=== PATIENT | female | born 1930 | race Caucasian/White ===

== ENCOUNTER 2017-04-18 07:23 | Inpatient (IN) ==
[2017-04-18] MEDS ORDERED: PANTOPRAZOLE 40 MG VIAL IV STA (08:03)
[2017-04-18] MEDS ORDERED: ONDANSETRON 4 MG/2 ML VIAL IV PRN (08:03)
[2017-04-18] MEDS ORDERED: SODIUM CHLORIDE 0.9% 500 ML IV STA (08:03)
[2017-04-18] MEDS ORDERED: PANTOPRAZOLE 40 MG VIAL IV ONE (08:07)
[2017-04-18 08:09] LABS: Basophils # 0.1 10*3/uL (0.0-0.2); Basophils % 0.9 % (0.0-0.8); Eosinophils # 0.5 10*3/uL (0.0-0.87); Eosinophils % 9.4 % (0.00-10.9); Hematocrit 36.4 VOL% (35.7-47.0); Immature Granulocytes % 0.4 %; Immature Granulocytes Absolute 0.02 #; Lymphocytes # 1.2 10*3/uL (1.4-4.0); Lymphocytes % 22.5 % (21.3-54.2); Mean Corpuscular Hemoglobin 30 PG (27-34); Mean Corpuscular Volume 91.9 FL (87-102); Mean Platelet Volume 10.2 FL (9.6-12.0); Monocytes # 0.5 10*3/uL (0.11-0.8); Monocytes % 9.2 % (1.7-12.7); Neutrophils # 3.1 10*3/uL (1.4-7.4); Neutrophils % 57.6 % (38.7-73.9); Platelet Count 164 T/CUMM (130-400); Red Blood Count 3.96 MC/CUMM (3.8-5.5); Red Cell Distribution Width 14.3 % (9.3-17.3); White Blood Count 5.3 T/CUMM (4-12)
--- NOTE | 2017-04-18 08:14 | EKG Report ---
Stationary ECG Study [facility] ER Test Date: 04/18/2017 8:12:16 AM Pat Name: THOM ALVARADO Department: Room: Gender: F Computational Scientist: : [id number] Requested by: Rick Patrick Order Number: [id number] Reading MD: JULIANNE GONSALEZ Intervals [place] Rate: 59 P: 18 ND: 218 QRS: -9 QRSD: 102 T: -15 QT: 467 QTc: 467 Interpretive Statements SINUS RHYTHM WITH PROLONGED ND INTERVAL VOLTAGE CRITERIA FOR LVH NONSPECIFIC T-WAVE ABNORMALITY Electronically Signed On 04-18-17 20:52:59 CDT by JULIANNE GONSALEZ [email or web address]
[2017-04-18 08:17] LABS: INR 1.3; PT Patient Result 13.5 SECS
[2017-04-18 08:21] LABS: Albumin 3.3 G/DL (3.4-5.0); Bilirubin,Total 0.7 MG/DL (0.2-1.0); Calcium 8.8 MG/DL (8.5-10.1); Osmolality,Calculated 296.7 MOS/KG (273-304); Potassium 3.6 MMOL/L (3.5-5.1); Total Protein 6.5 G/DL (6.4-8.3)
--- NOTE | 2017-04-18 08:24 | Emergency Department Note ---
IIdania Mantricia, am scribing for, and in the presence of, Rick Damon MD 08:09. IMarisol James D, MD, personally performed the services described in this documentation, ascribed by Luis Armando Emerson in my presence, and it is both accurate and complete 822 . Arrival - Arrival Chief Complaint: GI Bleed/Rectal ED Nursing Triage Note: states got up this am with small amount of blood on pad and then some clots and blood in toilet after going to the bathroom Mode of Arrival: Stretcher Limitations: No Limitations Source: Patient, RN Notes Reviewed Time Seen by Provider: 04/18/17 07:58 - History of Present Illness HPI Narrative: Pt is an 86 y/o white male arriving to ED by EMS with c/o a bright red bloody stool this morning. She states that it scared her because she's currently on Xarelto and there seemed to be blood clots in her BM. Pt has a PMHx of breast cancer and states that during her chemo, she bled on the inside; she is not on chemotherapy anymore. She also states that she had a similar episode back in 2014. Pt reports no other complaints to ED. Onset (ago): hour(s) Consistency: constant Allergies/Adverse Reactions: Allergies Allergy/AdvReac Type Severity Reaction Status Date / Time Iodinated Contrast Media - AdvReac Severe Difficulty Verified 12/24/16 12:03 Oral and Breathing Home Medications: Home Medications Medication Instructions Recorded Confirmed Type Allopurinol 100 mg PO DAILY 12/23/16 12/23/16 History Anastrozole 1 mg PO DAILY 12/23/16 12/23/16 History Ascorbic Acid [Vitamin C] 500 mg PO BID 12/23/16 12/23/16 History Chlorthalidone 25 mg PO DAILY 12/23/16 12/23/16 History Potassium Chloride [Klor-Con 10] 30 meq PO BID 12/23/16 12/23/16 History Rivaroxaban [Xarelto] 15 mg PO DAILY 12/23/16 12/23/16 History Sotalol [Betapace] 80 mg PO BID 12/23/16 12/23/16 History amLODIPine [Norvasc] 5 mg PO DAILY 12/23/16 12/23/16 History Chlorthalidone 25 mg PO DAILY 12/25/16 12/25/16 History Acetaminophen Tab [Tylenol Tab] 325 mg PO Q4H PRN #0 tablet 12/26/16 Rx Amoxicillin/Clav Tab [Augmentin 500 mg PO BID #6 tablet 12/26/16 Rx Tab] Atorvastatin [Lipitor] 20 mg PO QOTHER DAY #14 tablet 12/26/16 Rx Review of System - Review of System 12 point system: reviewed and no additional remarkable complaints except as stated - Review of System Constitutional: Present: other (bright red bloody stool). Absent: chills, diaphoresis Eyes: Absent: discharge, pain Head/Ears/Nose/Throat: Absent: earache, epistaxis Respiratory: Absent: cough, respiratory distress, wheezing Cardiovascular: Absent: chest pain, palpitations Gastrointestinal: Absent: abdominal pain, nausea, vomiting, diarrhea Genitourinary female: Present: other. Absent: abnormal menses, dysuria Musculoskeletal: Absent: arm pain, back pain, leg pain, neck pain Skin: Absent: rash, lesions Neurological: Absent: headache, weakness Medical,Surgical,& Family Hx - Medical History Cardio: History of: Cardiac Dysrhythmia, Hypertension, [place], Cardiovascular Problems (3 blood clots) HEENT: Comment Only: Eye Problem (cataract surgery) Endocrine: History of: Dyslipidemia No history of: Diabetes Mellitus (IDDM), Diabetes Mellitus (NIDDM), Thyroid Disorder Rheumatology: History of;: Gout Genitourinary: History of: Kidney Stones Gastrointestinal: History of: GERD Hematology: History of: Anemia Reproductive: History of: Breast Cancer - Surgical History Thoracic Surgeries: Surgical HX of;: Nephrectomy Abdominal Surgeries: Surgical HX of: Appendectomy Reproductive Surgeries: Surgical HX of;: Breast Surgery (finished Oct 2015) - Family History Family History: Reports;: Family Heart Disease, Family Hypertension - Social History Smoking Status: Never smoker Frequency of Alcohol Use: None Type of Drug Use: None Exam Vital Signs: Vital Signs Temperature 97.6 F 04/18/17 07:23 Pulse Rate 66 04/18/17 07:23 Respiratory Rate 18 04/18/17 07:23 Blood Pressure 175/75 04/18/17 07:23 O2 Sat by Pulse Oximetry 98 04/18/17 07:23 - General General appearance: alert, in no apparent distress - Head Head exam: Present: atraumatic, normocephalic, normal inspection - Eye Eye exam: Present: normal appearance, PERRL, EOMI - ENT ENT exam: Present: normal exam, normal oropharynx, mucous membranes moist, TM's normal bilaterally, normal external ear exam - Neck Neck exam: Present: normal inspection, full ROM, trachea midline. Absent: tenderness - Chest Chest inspection: Present: normal inspection, symmetric chest wall rise. Absent : tenderness - Respiratory Respiratory exam: Present: normal lung sounds bilaterally - Cardiovascular Cardiovascular exam: Present: regular rate, normal rhythm, normal heart sounds - Abdominal Exam Abdominal exam: Present: soft, normal bowel sounds. Absent: distention, tenderness, guarding, rebound - Rectal Exam Rectal exam: Present: normal inspection, normal rectal tone, bloody stool ( bright red). Absent: decreased rectal tone - Extremities Exam Extremities exam: Present: normal inspection, full ROM, normal capillary refill. Absent: tenderness, pedal edema - Back Exam Back exam: Present: normal inspection, full ROM. Absent: tenderness - Neurological Exam Neurological exam: Present: alert, oriented X3, CN II-XII intact, normal gait, reflexes normal - Psychiatric Psychiatric exam: Present: normal affect, normal mood - Skin Skin exam: Present: warm, dry, intact, normal color Course - Consultations Consultation #1: Discussed with hospitalist. Patient will be seen by them in the emergency department and admitted to their service. Time: 09:09 Results - Labs CBC & BMP: 04/18/17 07:39 04/18/17 07:39 Lab Results: I have reviewed the patients labs - EKG EKG results: interpreted by ERMD - Impressions EKG: Sinus bradycardia with first-degree AV block, rate 59, voltage for LVH, nonspecific ST-T wave changes. - Diagnostic Findings Procedure: Abdominal x-ray: image reviewed by me (Nonspecific gas pattern, no free air, gas in the rectum.), Chest x-ray: image reviewed by me (Mediport present with the tip in superior vena cava. Small right pleural effusion.) Disposition Clinical Impression: Lower GI bleed, Chronic anticoagulation, History of DVT (deep vein thrombosis) , History of breast cancer Case discussed with: patient Disposition: Still a Patient Condition: Stable
[2017-04-18 08:29] LABS: Partial Thromboplastin Time 73.9 SECS (0-40)
--- NOTE | 2017-04-18 09:15 | XRay Report ---
XR chest 1V Indication: Shortness of breath Comparison: Chest x-ray December 23, 2016 Technique: Portable AP chest was performed. Findings: The heart appears normal in size. Sclerotic calcification of the aortic knob is stable. Left-sided venous access to this is stable. Pulmonary vasculature demonstrates no specific abnormality. Hilar structures demonstrate fairly symmetric appearance. The lungs demonstrate coarsened interstitial pattern with little change suggested since comparison. A pain changes been improved aeration of the lung bases. Bones and soft tissues demonstrate no evidence of acute pathology. Impression: 1. Overall appearance of the chest has changed little since comparison study. There may be some interval improvement in aeration of the lung bases. Chronic interstitial coarsening is suggested bilaterally. 04/18/2017 9:05 AM PROCEDURE INTERPRETED AT [facility] DEPARTMENT OF RADIOLOGY Final Report Signed by: Dr. Neptali Morse
--- NOTE | 2017-04-18 09:16 | XRay Report ---
XR abdomen 2V Indication: Abdominal pain. Comparison: None. Technique: Flat and erect images of the abdomen were performed. Findings: Lung bases are clear. No organomegaly suggested. The bowel gas pattern demonstrates no significant abnormality. Bony structures as well as soft tissues demonstrate no evidence of significant pathology. Surgical absence of the gallbladder is suggested. Small hiatal hernia is not excluded. A rounded density lateral to the clips within the right upper quadrant is of uncertain etiology. Impression: 1. No active process is suggested within the abdomen or pelvis. 04/18/2017 9:12 AM PROCEDURE INTERPRETED AT [facility] DEPARTMENT OF RADIOLOGY Final Report Signed by: Dr. Neptali Morse
--- NOTE | 2017-04-18 10:05 | Hospitalist History & Physical ---
<Eleni Muroda - Last Filed: 04/18/17 09:56> Assessment and Plan (1) Chronic anticoagulation Status: Acute Assessment and plan: We will hold all anticoagulants at this time due to active bleeding. We will initiate mechanical DVT prophylaxis. we will continue to monitor. Current Visit: Yes (2) History of DVT (deep vein thrombosis) Status: Acute Assessment and plan: Although the patient has a very extensive history for the formation of DVTs, we will hold all anticoagulants at this time due to active bleeding. We will start mechanical prophylactics and apply SCDs. Current Visit: Yes (3) Lower GI bleed Status: Acute Assessment and plan: We will hold the patient n.p.o., gently replace volume, start PPIs, and consult GI for further evaluation. We will obtain serial H&H's, although her hemoglobin and hematocrit are stable at this time at 12.0 and 36.4, this may decline in response to the large loss of blowout experienced by her prior to presenting to the ED. We will transfuse if needed. Current Visit: Yes (4) Hypertension Status: Chronic Assessment and plan: We will monitor and resume home meds as previously ordered. Current Visit: No (5) Acute kidney injury Status: Acute Assessment and plan: Mild renal insufficiency noted at the time of admission, BUN noted at 34, creatinine at 1.20. This may be a response to a loss in volume secondary to the rectal bleeding. We we will gently rehydrate and recheck labs in the a.m. Current Visit: Yes History of Present Illness Chief complaint: Rectal bleeding History of present illness: This is a very pleasant 86-year-old female that presented to the ED at [facility] on this morning via EMS for evaluation of rectal bleeding. The patient has a very complex medical history significant for hypertension, deep vein thrombosis, myocardial infarction, congestive heart failure, dyslipidemia, gouty arthritis, renal calculi, anemia, carcinoma of the breast, and GERD. The patient has a surgical history significant for nephrectomy, appendectomy, mastectomy, and cataract removal. The patient reported the onset of symptoms on this morning upon awakening. She reports that she went to the bathroom and noticed that she had blood in her protective briefs. She proceeded to use the bathroom and noticed that she had dark red blood coming from her rectum. She became immediately alarmed and called EMS for further evaluation. The patient was assessed upon arrival to the ED. Labs were obtained which were significant for mild renal insufficiency with a BUN of 34 and creatinine of 1.20. Hemoglobin and hematocrit were noted at 12.0 and 36.4. Chest x-ray was obtained which reported chronic interstitial coarsening bilaterally. Abdominal x-ray was obtained which reported no active process within the abdomen or pelvis. 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 The patient reported that she was currently taking Xarelto prophylactically for this condition. In addition she reported an episode similar in nature in the past while she was on Coumadin, in which she was evaluated and treated by Dr. Barcenas. After brief discussion with both Dr. Dao and Dr. Lopez, the patient will be admitted to the hospitalist services for continuation of care. We will consult GI to assist during the clinical encounter. Home Medications Medication Instructions Recorded Confirmed Type Allopurinol 100 mg PO QAM 12/23/16 04/18/17 History Anastrozole 1 mg PO QAM 12/23/16 04/18/17 History Potassium Chloride [Klor-Con 10] 30 meq PO BID 12/23/16 04/18/17 History Rivaroxaban [Xarelto] 15 mg PO QPM 12/23/16 04/18/17 History Sotalol [Betapace] 80 mg PO BID 12/23/16 04/18/17 History amLODIPine [Norvasc] 5 mg PO QAM 12/23/16 04/18/17 History Chlorthalidone 25 mg PO QPM 12/25/16 04/18/17 History Acetaminophen Tab [Tylenol Tab] 325 mg PO Q4H PRN #0 tablet 12/26/16 04/18/17 Rx Torsemide [Torsemide] 20 mg PO QAM 04/18/17 04/18/17 History Allergies Allergy/AdvReac Type Severity Reaction Status Date / Time Iodinated Contrast Media - AdvReac Severe Difficulty Verified 12/24/16 12:03 Oral and Breathing Medical,Surgical,& Family Hx - Medical History Cardio: History of: Cardiac Dysrhythmia, Hypertension, [place], Cardiovascular Problems (3 blood clots) HEENT: Comment Only: Eye Problem (cataract surgery) Endocrine: History of: Dyslipidemia No history of: Diabetes Mellitus (IDDM), Diabetes Mellitus (NIDDM), Thyroid Disorder Rheumatology: History of;: Gout Genitourinary: History of: Kidney Stones Gastrointestinal: History of: GERD Hematology: History of: Anemia Reproductive: History of: Breast Cancer - Surgical History Thoracic Surgeries: Surgical HX of;: Nephrectomy Abdominal Surgeries: Surgical HX of: Appendectomy Reproductive Surgeries: Surgical HX of;: Breast Surgery (finished Oct 2015) - Family History Family History: Reports;: Family Heart Disease, Family Hypertension - Social History Smoking Status: Never smoker Frequency of Alcohol Use: None Type of Drug Use: None 12 point system: reviewed and no additional remarkable complaints except as stated Exam - Constitutional Vitals: Period Temp Pulse Resp BP Sys/Calixto Pulse Ox Last 24 Hr 97.6 F-97.6 F 58-66 18-18 164-175/62-75 98-100 General appearance: normal weight, no acute distress - Head Head exam: Present: normal inspection, normocephalic, atraumatic - Eye Eye exam: Present: EOMI. Absent: conjunctival injection, nystagmus Pupils: Present: CECILIA, normal accommodation - ENT ENT exam: Present: normal exam, normal external ear exam, normal oropharynx - Neck Neck exam: Present: normal inspection. Absent: lymphadenopathy, meningismus, thyromegaly - Respiratory Respiratory exam: Present: clear to auscultation bilaterally. Absent: rales, rhonchi, stridor, wheezes - Cardiovascular Cardiovascular exam: Present: regular rate and rhythm, other (medi port to left upper chest wall) - GI/Abdominal GI/Abdominal exam: Present: normal bowel sounds, soft. Absent: firm, guarding, mass, tenderness - Extremities Exam Extremities exam: Present: normal inspection, normal capillary refill, full ROM. Absent: edema - Back Exam Back exam: Present: normal inspection - Neurological Exam Neurological exam: Present: alert, oriented X3, CN II-XII intact - Psychiatric Psychiatric exam: Present: normal affect, normal mood - Skin Skin exam: Present: normal color, warm, dry Results - Labs CBC & BMP: 04/18/17 07:39 04/18/17 07:39 Lab Results: I have reviewed the past 24 hour labs <Steve Lopez - Last Filed: 04/18/17 16:39> History of Present Illness History of present illness: Patient seen and examined along with TASHA Muro, agree with history, assessment and plan as documented. 86 y/o WF on Xarelto presents with rectal bleeding. She reports a history of multiple DVTs in the past, previously on coumadin, now on xarelto after developing a new DVT soon after stopping coumadin. She does report a similar bleed a few years ago, with supratherapeutic inr. She reports being told that she had an ulcer at that time. On exam she has now abdominal tenderness. H/H are ok right now, will continue to monitor serially. GI consulted. Will hold her xarelto for now, but given her history sounds like she will need to have some form of anti- coagulation. Exam - Constitutional Vitals: Period Temp Pulse Resp BP Sys/Calixto Pulse Ox Last 24 Hr 97.6 F-98.0 F 58-66 16-18 139-175/62-89 96-100 Results - Labs CBC & BMP: 04/18/17 11:53 04/18/17 07:39
[2017-04-18] MEDS ORDERED: PANTOPRAZOLE INJ 200 MG in SODIUM CHLORIDE 0.9% 250 ML IV SCH (12:00)
--- NOTE | 2017-04-18 12:08 | Gastrointestinal Consult Note ---
Assessment and Plan (1) Lower GI bleed Status: Acute Assessment and plan: 04/18-sudden onset of lower GI bleeding with bright red blood mixed with clots with mild lower abdominal soreness. History of duodenal ulcer in 2013. Last colonoscopy 10 years ago. No reported history of diverticulosis. Hemoglobin stable at 12. To be transfused 2 units of packed red blood cells. Continue to monitor serial H&H. Obtain last colonoscopy report from [facility]. Plan an addendum to followed by Dr. Barcenas. Current Visit: Yes History of Present Illness Chief complaint: GI bleed History of present illness: Ms. Greene is a 86 year old female who was admitted to the hospital with onset of GI bleeding. Patient has a prior history of hypertension, DVT, NH, CHF, breast cancer, nephrectomy, appendectomy, and mastectomy. Patient's daughter is at bedside during visit. Pt states she was in her usual state of health until this morning when she got up to use the restroom she noted a large amount of bright red blood in her briefs. She states that she had the urge to have a bowel movement and shortly after this she had another episode of darker blood with clots mixed in. She denies any abdominal pain associated with this other than some mild lower abdominal soreness. She denies any nausea or vomiting. Pt states she has never had a GI bleed in the past other than from duodenal ulcers in 2013. She denies any recent weight loss, fever or chills. She has been on Coumadin in the past for history of DVT however this was changed to Xarelto in 2014 in which she had a recurrence of a DVT. She has remained on Xarelto since this time. This is currently being held. Patient unable to recall the exact timing of her last colonoscopy however states that it was approximately 10 years ago done at the endoscopic clinic. She was told at that time that she did not need to repeat his due to no findings of polyps. Her last EGD was done in [address] Barcenas with findings of esophageal stricture as well as duodenal ulcers. She denies any NSAID use. She denies any increasing GERD, or dysphagia. Denies any increase in belching or bloating. Hemoglobin is currently stable at 12. BUN/creatinine 28. INR is 1.3. She is noted to have 2 units of blood pending to transfuse. Home Medications Medication Instructions Recorded Confirmed Type Allopurinol 100 mg PO QAM 12/23/16 04/18/17 History Anastrozole 1 mg PO QAM 12/23/16 04/18/17 History Potassium Chloride [Klor-Con 10] 30 meq PO BID 12/23/16 04/18/17 History Rivaroxaban [Xarelto] 15 mg PO QPM 12/23/16 04/18/17 History Sotalol [Betapace] 80 mg PO BID 12/23/16 04/18/17 History amLODIPine [Norvasc] 5 mg PO QAM 12/23/16 04/18/17 History Chlorthalidone 25 mg PO QPM 12/25/16 04/18/17 History Acetaminophen Tab [Tylenol Tab] 325 mg PO Q4H PRN #0 tablet 12/26/16 04/18/17 Rx Torsemide [Torsemide] 20 mg PO QAM 04/18/17 04/18/17 History Allergies Allergy/AdvReac Type Severity Reaction Status Date / Time Iodinated Contrast Media - AdvReac Severe Difficulty Verified 12/24/16 12:03 Oral and Breathing Medical,Surgical,& Family Hx - Medical History Cardio: History of: Cardiac Dysrhythmia, Hypertension, [place], Cardiovascular Problems (3 blood clots) HEENT: Comment Only: Eye Problem (cataract surgery) Endocrine: History of: Dyslipidemia No history of: Diabetes Mellitus (IDDM), Diabetes Mellitus (NIDDM), Thyroid Disorder Rheumatology: History of;: Gout Genitourinary: History of: Kidney Stones Gastrointestinal: History of: GERD, Gastrointestinal Bleed Hematology: History of: Anemia Reproductive: History of: Breast Cancer - Surgical History Thoracic Surgeries: Surgical HX of;: Nephrectomy (2004) Neurologic Surgeries: Patient denies: Neurologic Surgery Abdominal Surgeries: Surgical HX of: Appendectomy (1948) Reproductive Surgeries: Surgical HX of;: Breast Surgery (finished Oct 2015) - Family History Family History: Reports;: Family Heart Disease, Family Hypertension - Social History Smoking Status: Never smoker Frequency of Alcohol Use: None Type of Drug Use: None 12 point system: reviewed and no additional remarkable complaints except as stated - Constitutional Constitutional: Present: as per HPI - EENT Eyes: Present: as per HPI Ears: Present: as per HPI Nose, mouth and throat: Present: as per HPI - Cardiovascular Cardiovascular: Present: as per HPI - Respiratory Respiratory: Present: as per HPI - Gastrointestinal Gastrointestinal: Present: as per HPI, hematochezia - Genitourinary Genitourinary: Present: as per HPI - Musculoskeletal Musculoskeletal: Present: as per HPI - Neurological Neurological: Present: as per HPI - Psychiatric Psychiatric: Present: as per HPI - Endocrine Endocrine: Present: as per HPI - Hematologic/Lymphatic Hematologic/Lymphatic: Present: as per HPI Exam - Constitutional Vitals: Period Temp Pulse Resp BP Sys/Calixto Pulse Ox Last 24 Hr 97.6 F-98.0 F 58-66 16-18 139-175/62-89 96-100 General appearance: normal weight, no acute distress - Head Head exam: Present: normal inspection, normocephalic - Eye Eye exam: Present: other (Lids and conjunctive are unremarkable). Absent: scleral icterus - ENT ENT exam: Present: normal exam, normal oropharynx - Neck Neck exam: Present: normal inspection - Respiratory Respiratory exam: Present: clear to auscultation bilaterally. Absent: rales, rhonchi, wheezes - Cardiovascular Cardiovascular exam: Present: regular rate and rhythm. Absent: diastolic murmur , JVD, systolic murmur - GI/Abdominal GI/Abdominal exam: Present: normal bowel sounds, soft. Absent: ascites, distended, mass, organomegaly, tenderness - Extremities Exam Extremities exam: Present: normal inspection, full ROM - Back Exam Back exam: Present: normal inspection - Neurological Exam Neurological exam: Present: alert, oriented X3 - Psychiatric Psychiatric exam: Present: normal affect, normal mood - Skin Skin exam: Present: normal color, warm, dry Results - Labs CBC & BMP: 04/18/17 07:39 04/18/17 07:39 Lab Results: I have reviewed the past 24 hour labs
[2017-04-18 12:10] LABS: Hematocrit 35.6 VOL% (35.7-47.0); Hemoglobin 11.7 GM/DL (12.0-16.0)
[2017-04-18] MEDS: SODIUM CHLORIDE 0.9% 1,000 ML IV SCH (15:11)
[2017-04-18 19:24] LABS: Hematocrit 33.5 VOL% (35.7-47.0); Hemoglobin 11.1 GM/DL (12.0-16.0)
[2017-04-18] MEDS: SOTALOL 80 MG TABLET PO SCH (21:48)
[2017-04-19 01:31] LABS: Basophils % 0.4 % (0.0-0.8); Eosinophils # 0.4 10*3/uL (0.0-0.87); Eosinophils % 7.3 % (0.00-10.9); Hemoglobin 10.4 GM/DL (12.0-16.0); Immature Granulocytes % 0.4 %; Immature Granulocytes Absolute 0.02 #; Lymphocytes # 1.4 10*3/uL (1.4-4.0); Lymphocytes % 28.8 % (21.3-54.2); Mean Corpuscular HGB Conc 32.5 GM/DL (32-36); Mean Corpuscular Hemoglobin 30 PG (27-34); Mean Platelet Volume 9.7 FL (9.6-12.0); Monocytes # 0.5 10*3/uL (0.11-0.8); Monocytes % 9.2 % (1.7-12.7); Neutrophils # 2.6 10*3/uL (1.4-7.4); Neutrophils % 53.9 % (38.7-73.9); Platelet Count 144 T/CUMM (130-400); Red Blood Count 3.48 MC/CUMM (3.8-5.5); Red Cell Distribution Width 14.4 % (9.3-17.3); White Blood Count 4.9 T/CUMM (4-12)
[2017-04-19 01:53] LABS: Calcium 7.8 MG/DL (8.5-10.1); Osmolality,Calculated 288.8 MOS/KG (273-304); Potassium 3.4 MMOL/L (3.5-5.1)
[2017-04-19] MEDS: SODIUM CHLORIDE 0.9% 1,000 ML IV SCH ×3 (06:19→20:04)
[2017-04-19] MEDS: ANASTROZOLE 1 MG TABLET PO SCH (09:27)
[2017-04-19] MEDS: SOTALOL 80 MG TABLET PO SCH ×2 (09:27→21:30)
[2017-04-19] MEDS: ALLOPURINOL 100 MG TABLET PO SCH (09:27)
--- NOTE | 2017-04-19 09:34 | Gastrointestinal Progress Note ---
Assessment and Plan (1) Lower GI bleed Status: Acute Assessment and plan: 04/19-Hgb stable at 10.4, no further bleeding. Will plan for colonoscopy tomorrow. Plan and addendum to follow by Dr Barcenas. 04/18-sudden onset of lower GI bleeding with bright red blood mixed with clots with mild lower abdominal soreness. History of duodenal ulcer in 2013. Last colonoscopy 10 years ago. No reported history of diverticulosis. Hemoglobin stable at 12. To be transfused 2 units of packed red blood cells. Continue to monitor serial H&H. Obtain last colonoscopy report from [facility]. Plan an addendum to followed by Dr. Barcenas. Current Visit: Yes Gastroenterology - PN: Subj Interval history: CC: GI bleed Pt is seen awake and alert, states she did not rest last night due to required night checks by nursing staff. She states she has had no further bleeding however has not had a bowel movements. Denies any abdominal pain. She is tolerating clear liquids well. Hgb is stable at 10.4 however she had two units of PRBC ordered but not noted to be transfused. Abdomen is soft, nontender. We will start her prep for colonoscopy this morning. ROS: Denies SOB or chest pain Exam (Progress Note) - Constitutional Vitals: Period Temp Pulse Resp BP Sys/Calixto Pulse Ox Last 24 Hr 97.6 F-98.6 F 60-85 16-20 120-166/58-89 92-98 General appearance: normal weight, no acute distress - Head Head exam: Present: normal inspection, normocephalic - Eye Eye exam: Present: other (lids and conjunctiva unremarakble). Absent: scleral icterus - ENT ENT exam: Present: normal exam, normal oropharynx - Neck Neck exam: Present: normal inspection - Respiratory Respiratory exam: Present: clear to auscultation bilaterally. Absent: rales, rhonchi, wheezes - Cardiovascular Cardiovascular exam: Present: regular rate and rhythm. Absent: diastolic murmur , JVD, systolic murmur - GI/Abdominal GI/Abdominal exam: Present: normal bowel sounds, soft. Absent: ascites, distended, mass, organomegaly, tenderness - Extremities Exam Extremities exam: Present: normal inspection, full ROM - Back Exam Back exam: Present: normal inspection - Neurological Exam Neurological exam: Present: alert, oriented X3 - Psychiatric Psychiatric exam: Present: normal affect, normal mood - Skin Skin exam: Present: normal color, warm, dry Results - Labs CBC & BMP: 04/19/17 01:13 04/19/17 01:13 Lab Results: I have reviewed the past 24 hour labs
[2017-04-19] MEDS ORDERED: BISACODYL 5 MG TABLET PO ONE (10:00)
--- NOTE | 2017-04-19 10:35 | Hospitalist Progress Note ---
Assessment and Plan (1) History of DVT (deep vein thrombosis) Status: Chronic Assessment and plan: Multiple dvts in the past Currently on xarelto Current Visit: No (2) Hypertension Status: Chronic Assessment and plan: Continue sotalol Restart torsemide Current Visit: No (3) History of breast cancer Status: Chronic Current Visit: No (4) Lower GI bleed Status: Acute Assessment and plan: GI consulted H/H stable Plan is for colonoscopy tomorrow Current Visit: Yes (5) Chronic anticoagulation Status: Acute Current Visit: Yes Hospitalist: Subjective Interval history: No acute events overnight. No repeat episodes of bleeding, but no bowel movements either. Exam - Constitutional Vitals: Period Temp Pulse Resp BP Sys/Calixto Pulse Ox Last 24 Hr 97.6 F-98.6 F 60-85 16-20 120-166/58-78 92-98 General appearance: over weight - Head Head exam: Present: normocephalic, atraumatic - Eye Eye exam: Present: EOMI Pupils: Present: CECILIA - ENT ENT exam: Present: normal exam - Neck Neck exam: Present: normal inspection - Respiratory Respiratory exam: Present: clear to auscultation bilaterally. Absent: rhonchi, wheezes - Cardiovascular Cardiovascular exam: Present: regular rate and rhythm - GI/Abdominal GI/Abdominal exam: Present: normal bowel sounds, soft. Absent: tenderness, rebound - Extremities Exam Extremities exam: Present: normal inspection - Back Exam Back exam: Present: normal inspection - Neurological Exam Neurological exam: Present: alert, oriented X3 - Psychiatric Psychiatric exam: Present: normal affect, normal mood - Skin Skin exam: Present: warm, intact Results - Labs CBC & BMP: 04/19/17 01:13 04/19/17 01:13
[2017-04-19] MEDS ORDERED: POLYETHYLENE GLYCOL POWDER 255 GM BOTTLE PO ONE (11:00)
[2017-04-19] MEDS: TORSEMIDE 20 MG TABLET PO SCH (12:57)
[2017-04-20 05:27] LABS: Basophils % 0.6 % (0.0-0.8); Eosinophils # 0.5 10*3/uL (0.0-0.87); Eosinophils % 8.5 % (0.00-10.9); Hematocrit 33.3 VOL% (35.7-47.0); Hemoglobin 11.2 GM/DL (12.0-16.0); Immature Granulocytes % 0.2 %; Immature Granulocytes Absolute 0.01 #; Lymphocytes # 1.3 10*3/uL (1.4-4.0); Lymphocytes % 24.9 % (21.3-54.2); Mean Corpuscular HGB Conc 33.6 GM/DL (32-36); Mean Corpuscular Hemoglobin 31 PG (27-34); Mean Corpuscular Volume 91.2 FL (87-102); Mean Platelet Volume 10.2 FL (9.6-12.0); Monocytes # 0.5 10*3/uL (0.11-0.8); Monocytes % 9.2 % (1.7-12.7); Neutrophils % 56.6 % (38.7-73.9); Platelet Count 162 T/CUMM (130-400); Red Blood Count 3.65 MC/CUMM (3.8-5.5); Red Cell Distribution Width 14.2 % (9.3-17.3); White Blood Count 5.3 T/CUMM (4-12)
[2017-04-20 06:00] LABS: Calcium 7.8 MG/DL (8.5-10.1); Osmolality,Calculated 283.8 MOS/KG (273-304); Potassium 3.3 MMOL/L (3.5-5.1)
[2017-04-20] MEDS ORDERED: MAGNESIUM CITRATE 300 ML BOTTLE PO ONE (06:00)
[2017-04-20] MEDS: SODIUM CHLORIDE 0.9% 1,000 ML IV SCH ×3 (06:20→20:38)
[2017-04-20] MEDS ORDERED: PROPOFOL 200 MG/20 ML VIAL IV ONE (10:05)
[2017-04-20] MEDS ORDERED: LIDOCAINE 1% 5 ML VIAL ONE (10:05)
--- NOTE | 2017-04-20 10:10 | History and Physical Update ---
History and Physical Update - History and Physical H&P was reviewed, the patient examined and there: are no changes in the patients condition since last H&P was completed. - Physical Exam Mental Status: alert and oriented Heart: regular rate and rhythm Lung: clear to auscultation Abdomen: within normal limits Vitals: within normal limits
--- NOTE | 2017-04-20 10:23 | Operative Note ---
Date of procedure: 04/20/17 Pre-op diagnosis: Lower GI bleed Procedure: Procedure note: Colonoscopy Physician: Dr. Jacob Barcenas Brief clinical abstract: Patient is an 86-year-old female admitted with lower GI bleeding. She was on Xarelto prior to admission. She has had no further bleeding the last couple of days. Endoscopic findings: After informed consent was obtained, the patient was placed in the left lateral decubitus position. Digital rectal exam was performed with no palpable abnormalities felt. Pediatric videocolonoscope was inserted into the rectum and advanced to the cecum without difficulty. Retroflex view within the cecum was performed back to the level of the hepatic flexure. The endoscope was advanced back to the cecum and on withdrawal colonic mucosa was carefully examined. Bowel prep was of good quality. Withdrawal time was over 6 minutes duration. Vascular pattern throughout the colon appeared normal. No polyps were seen. There were a moderate number of diverticuli in the ascending as well as descending and sigmoid colon. No bleeding stigmata were visualized. No blood was noted in the colon. The endoscope was withdrawn in the rectum with retroflex view showing small internal hemorrhoids. The endoscope was then removed. She appeared to tolerate the procedure well. Impression: #1 diverticulosis coli #2 small internal hemorrhoids Plan: Advance diet. Could probably discharge tomorrow if no sign of further bleeding. Would hold Xarelto at least until probably Sunday of next week. Anesthesia: MAC Surgeon / Physician: Hugo Barcenas Estimated blood loss: none Specimens: none sent Condition: stable Disposition: post procedure unit Results - Labs CBC & BMP: 04/20/17 04:57 04/20/17 04:57 Discharge Plan - Discharge Medications No Action Potassium Chloride [Klor-Con 10] 30 meq PO BID Allopurinol 100 mg PO QAM Rivaroxaban [Xarelto] 15 mg PO QPM amLODIPine [Norvasc] 5 mg PO QAM Sotalol [Betapace] 80 mg PO BID Torsemide [Torsemide] 20 mg PO QAM Anastrozole 1 mg PO QAM Chlorthalidone 25 mg PO QPM Acetaminophen Tab [Tylenol Tab] 325 mg PO Q4H PRN #0 tablet PRN Reason: fever, headache/body aches - Follow Up or Referral - Forms/Instructions
--- NOTE | 2017-04-20 10:27 | Anesthesia Post-Op ---
Anesthesia Post OP - Post Ansesthetic Evaluation Patient seen in post op: Yes Resp: within normal limits CV: within normal limits Mental: within normal limits Temp: within normal limits [id number]: within normal limits Nausea and Vomiting: within normal limits Pain: within normal limits
--- NOTE | 2017-04-20 12:04 | Hospitalist Progress Note ---
Assessment and Plan (1) History of DVT (deep vein thrombosis) Status: Chronic Assessment and plan: Multiple dvts in the past Currently on xarelto, holding GI recommends restarting next week Current Visit: No (2) Hypertension Status: Chronic Assessment and plan: Continue sotalol and torsemide Current Visit: No (3) History of breast cancer Status: Chronic Current Visit: No (4) Lower GI bleed Status: Acute Assessment and plan: GI consulted H/H stable Colonoscopy today Current Visit: Yes (5) Chronic anticoagulation Status: Acute Current Visit: Yes Hospitalist: Subjective Interval history: No acute events overnight. No complaints this am. H/H is stable. Colonoscopy today with diverticulosis and small internal hemorrhoids. Possible discharge tomorrow if H/H remains stable. Can restart xarelto next week. Exam - Constitutional Vitals: Period Temp Pulse Resp BP Sys/Calixto Pulse Ox Last 24 Hr 97.1 F-99.0 F 55-65 16-20 109-169/51-75 92-99 General appearance: over weight - Head Head exam: Present: normocephalic, atraumatic - Eye Eye exam: Present: EOMI Pupils: Present: CECILIA - ENT ENT exam: Present: normal exam - Neck Neck exam: Present: normal inspection - Respiratory Respiratory exam: Present: clear to auscultation bilaterally. Absent: wheezes - Cardiovascular Cardiovascular exam: Present: regular rate and rhythm - GI/Abdominal GI/Abdominal exam: Present: normal bowel sounds, soft. Absent: tenderness, rebound - Back Exam Back exam: Present: normal inspection - Neurological Exam Neurological exam: Present: alert, oriented X3 - Psychiatric Psychiatric exam: Present: normal affect, normal mood - Skin Skin exam: Present: warm, intact Results - Labs CBC & BMP: 04/20/17 04:57 04/20/17 04:57
[2017-04-20] MEDS: SOTALOL 80 MG TABLET PO SCH ×2 (12:46→20:36)
[2017-04-20] MEDS: TORSEMIDE 20 MG TABLET PO SCH (12:46)
[2017-04-20] MEDS: ALLOPURINOL 100 MG TABLET PO SCH (12:47)
[2017-04-20] MEDS: ANASTROZOLE 1 MG TABLET PO SCH (12:47)
[2017-04-20] MEDS: POTASSIUM CHLORIDE 10 MEQ TABLET PO SCH ×2 (12:47→20:36)
[2017-04-21 05:39] LABS: Hemoglobin 10.5 GM/DL (12.0-16.0)
[2017-04-21] MEDS: ANASTROZOLE 1 MG TABLET PO SCH (09:10)
[2017-04-21] MEDS: SOTALOL 80 MG TABLET PO SCH (09:11)
[2017-04-21] MEDS: TORSEMIDE 20 MG TABLET PO SCH (09:11)
[2017-04-21] MEDS: POTASSIUM CHLORIDE 10 MEQ TABLET PO SCH ×2 (09:12→09:56)
[2017-04-21] MEDS: ALLOPURINOL 100 MG TABLET PO SCH (09:12)
--- NOTE | 2017-04-21 09:24 | Discharge Summary ---
<Edgardo Loya - Last Filed: 04/21/17 09:17> Hospital Course - Hospital Course Hospital Course: This patient is a 86-year-old female who was admitted to the [place] ED on 04/18 with complaints of bleeding per rectum. Abdominal CT on admission showed no active process within the abdomen or pelvis. Chest x-ray showed chronic interstitial coarsening bilaterally. She was admitted with a lower GI bleed and made n.p.o., anticoagulants were held, she was started on Protonix infusion , serial H&H's were ordered and GI was consulted. She was seen by Dr. Barcenas who planned for a colonoscopy on Sunday. On 04/20/2017, patient underwent a colonoscopy per Dr. Barcenas which revealed diverticulosis coli and small internal hemorrhoids. Procedure was otherwise unremarkable. GI recommended advancing her diet post op and restarting Xarelto on next week (Sunday, 2016). The remainder of her hospital course was uncomplicated highlighted by management of her chronic conditions including hypertension with sotalol and restarting torsemide. At this time she is reached maximum benefit from hospitalization and is stable for discharge. She will be discharged home to self with appropriate follow-up instructions. - Time spent with patient Time with patient DS: Greater than 30 minutes Discharge Plan - Discharge Data Disposition: Disch To Home/Self Care - Discharge Medications New Allopurinol [Zyloprim] 100 mg PO QAM tablet Anastrozole [Arimidex] 1 mg PO QAM tablet Continue Potassium Chloride [Klor-Con 10] 30 meq PO BID amLODIPine [Norvasc] 5 mg PO QAM Sotalol [Betapace] 80 mg PO BID Torsemide 20 mg PO QAM Chlorthalidone 25 mg PO QPM Acetaminophen Tab [Tylenol Tab] 325 mg PO Q4H PRN #0 tablet PRN Reason: fever, headache/body aches Discontinued Allopurinol 100 mg PO QAM Rivaroxaban [Xarelto] 15 mg PO QPM Anastrozole 1 mg PO QAM - Follow Up or Referral - Forms/Instructions Instructions: Gastrointestinal Bleeding (DC) Exam - Constitutional Vitals: Period Temp Pulse Resp BP Sys/Calixto Pulse Ox Last 24 Hr 96 F-98.3 F 56-87 16-21 104-190/51-81 93-98 Discharge Results Procedures and tests throughout hospitalization: Pending Orders 04/18/17 07:39 Antibody Identification Stat Red Blood Cells Leuko Red Stat Type and Screen Stat Labs on day of discharge: Labs from last 24 hours 04/21/17 04/18/17 04:27 07:39 Hgb 10.5 L Hct 32.0 L Crossmatch See Detail DS: Provider Date of admission: 04/18/17 09:13 Primary care physician: . No PCP Attending physician on admission: Steve Lopez MD Consults: 04/18/17 09:16 Consult to Physician [CONS] Routine Comment: Consulting Provider: Hugo Barcenas Consulting Provider Notified: Yes When should Consulting Provider be notified: Now Consult to Specialist Group: Gastroenterology When should Consulting Provider be notified: Now Person Notified: DG Date Notified: 04/18/17 Time Notified: 14:12 Discharging clinician: Edgardo VÁZQUEZ Expected date of discharge: 04/21/17 <Steve Lopez - Last Filed: 04/21/17 10:16> Hospital Course - Time spent with patient Time with patient DS: Less than 30 minutes Diagnosis - Discharge Diagnosis (1) History of DVT (deep vein thrombosis) Status: Chronic (2) Hypertension Status: Chronic (3) History of breast cancer Status: Chronic (4) Lower GI bleed Status: Resolved (5) Chronic anticoagulation Status: Chronic Discharge Plan - Discharge Data Condition at Discharge: Stable Discharge Diet: high fiber diet Activity: increase activity as tolerated Hygiene: no restrictions Weight Bearing at Discharge: weight bear as tolerated Contact your physician if you experience:: Shortness of breath, Bleeding Exam - Constitutional General appearance: normal weight - Head Head exam: Present: normocephalic, atraumatic - Eye Eye exam: Present: EOMI Pupils: Present: CECILIA - ENT ENT exam: Present: normal exam - Neck Neck exam: Present: normal inspection - Respiratory Respiratory exam: Present: clear to auscultation bilaterally. Absent: wheezes - Cardiovascular Cardiovascular exam: Present: regular rate and rhythm - GI/Abdominal GI/Abdominal exam: Present: normal bowel sounds, soft. Absent: tenderness, rebound - Extremities Exam Extremities exam: Present: normal inspection - Back Exam Back exam: Present: normal inspection - Neurological Exam Neurological exam: Present: alert, oriented X3 - Psychiatric Psychiatric exam: Present: normal affect, normal mood - Skin Skin exam: Present: warm, intact
[2017-04-21 11:52] VITALS: BP 176/75
--- NOTE | 2017-04-26 12:51 | Physician Query Form ---
CLICK EDIT DOCUMENT TO SELECT QUERY ANSWER --> OK --> SIGN Malu Mckeon RN Clinical Drawing Kiln Supervisor W) [phone] (f) [phone] [email or web address] PROVIDERS: Make your selection(s) from the choices in EACH section by typing an "x" and enter comments in the comment section. Please use your independent medical judgment in providing your response. This request does not imply that any particular answer is desired or expected. CLINICAL INDICATORS: (Providers should not edit this section) Pt. admitted with lower GI bleed. Based on documentation of "She's currently on Xarelto. We will hold all anticoagulants at this time due to active bleeding". C -Scope report showed "diverticulosis coli and small internal hemorrhoids". Based on the above, could you clarify the appropriate diagnosis, if significant , that supports the above abnormalities and additional evaluation, monitoring, and/or treatment rendered: ( ) GI bleed due to anticoagulants ( x) GI bleed due to diverticulosis ( ) GI bleed due to small internal hemorrhoids ( ) GI bleed due to ( ) Other, please specify: ( ) Clinically unable to determine COMMENTS: PLEASE ALSO DOCUMENT RESPONSE IN PROGRESS NOTES AND/OR DISCHARGE SUMMARY Use of terms such as suspected, likely, or probable (associated with a specific diagnosis that is being evaluated, monitored, or treated as if it exists) are acceptable and can be restated in the discharge summary if not ruled out. MTDD
== END 2017-04-21 11:55 | disposition home or self-care (01) | DRG 378 ==
LOC: EDBD → EDUNIT# → N.ED 07:23 → N.EDINP 09:13 → N.4E 10:53
PROVIDERS: ADMIT Internal Medicine; ATTEND Internal Medicine

== ENCOUNTER 2018-04-28 04:21 | Inpatient (IN) ==
[2018-04-28] MEDS ORDERED: FUROSEMIDE 40 MG/4 ML VIAL IV STA (04:36)
[2018-04-28 05:08] LABS: Basophils # 0.1 10*3/uL (0.0-0.2); Basophils % 0.5 % (0.0-0.8); Eosinophils # 0.2 10*3/uL (0.0-0.87); Eosinophils % 1.9 % (0.00-10.9); Hemoglobin 11.8 GM/DL (12.0-16.0); Immature Granulocytes % 0.3 %; Immature Granulocytes Absolute 0.03 #; Lymphocytes # 0.4 10*3/uL (1.4-4.0); Lymphocytes % 4.3 % (21.3-54.2); Mean Corpuscular HGB Conc 32.8 GM/DL (32-36); Mean Corpuscular Hemoglobin 29 PG (27-34); Mean Corpuscular Volume 89.1 FL (87-102); Mean Platelet Volume 9.3 FL (9.6-12.0); Monocytes # 0.3 10*3/uL (0.11-0.8); Monocytes % 2.6 % (1.7-12.7); Neutrophils % 90.4 % (38.7-73.9); Platelet Count 166 T/CUMM (130-400); Red Blood Count 4.04 MC/CUMM (3.8-5.5); Red Cell Distribution Width 15.1 % (9.3-17.3); White Blood Count 9.9 T/CUMM (4-12)
[2018-04-28 05:37] LABS: Albumin 3.2 G/DL (3.4-5.0); Bilirubin,Total 0.8 MG/DL (0.2-1.0); Calcium 8.7 MG/DL (8.5-10.1); Potassium 3.5 MMOL/L (3.5-5.1); Total Protein 6.5 G/DL (6.4-8.3)
[2018-04-28 05:54] LABS: Eosinophils 1 % (0-10); Hypochromasia 1+; Lymphocytes 4 % (20-55); Ovalocytes Slight; Platelet Estimate Normal; Segmented Neutrophils 93 % (50-85); Total Cells Counted 100
[2018-04-28] MEDS ORDERED: MAGNESIUM SULF RIDER 2 GM in PREMIX 1 EACH IV PRN (08:48)
[2018-04-28] MEDS ORDERED: MAGNESIUM SULF RIDER 4 GM in PREMIX 1 EACH IV PRN (08:48)
[2018-04-28 08:50] LABS: VBG Base Excess 3.4 MEQ/L (0-4); VBG HCO3 26.8 MEQ/L (24-28); VBG Oxygen Saturation 66.7 %; VBG PCO2 46.3 MMHG (41-51); VBG PH 7.403; VBG PO2 34.7 MMHG (17-40)
[2018-04-28] MEDS: POTASSIUM CHLORIDE 10 MEQ TABLET PO SCH ×2 (10:04→20:12)
[2018-04-28] MEDS: ALLOPURINOL 100 MG TABLET PO SCH (10:06)
[2018-04-28] MEDS: ANASTROZOLE 1 MG TABLET PO SCH (10:06)
[2018-04-28] MEDS: ATORVASTATIN 20 MG TABLET PO SCH (10:06)
[2018-04-28] MEDS: amLODIPine 5 MG TABLET PO SCH (10:07)
[2018-04-28] MEDS: SOTALOL 80 MG TABLET PO SCH ×2 (10:07→20:12)
[2018-04-28] MEDS: SPIRONOLACTONE 25 MG TABLET PO SCH (13:15)
[2018-04-28] MEDS: FUROSEMIDE 40 MG/4 ML VIAL IV SCH (15:13)
[2018-04-28] MEDS: ASCORBIC ACID 500 MG TABLET PO SCH ×2 (15:14→20:12)
[2018-04-28] MEDS ORDERED: ACETAMINOPHEN 325 MG TABLET PO PRN (17:26)
[2018-04-29 05:53] LABS: Basophils % 0.3 % (0.0-0.8); Eosinophils # 0.1 10*3/uL (0.0-0.87); Eosinophils % 1.8 % (0.00-10.9); Hematocrit 33.9 VOL% (35.7-47.0); Hemoglobin 11.3 GM/DL (12.0-16.0); Immature Granulocytes % 0.5 %; Immature Granulocytes Absolute 0.03 #; Lymphocytes # 0.8 10*3/uL (1.4-4.0); Lymphocytes % 11.6 % (21.3-54.2); Mean Corpuscular HGB Conc 33.3 GM/DL (32-36); Mean Corpuscular Hemoglobin 29 PG (27-34); Mean Corpuscular Volume 87.4 FL (87-102); Mean Platelet Volume 9.9 FL (9.6-12.0); Monocytes # 0.9 10*3/uL (0.11-0.8); Monocytes % 13.2 % (1.7-12.7); Neutrophils # 4.8 10*3/uL (1.4-7.4); Neutrophils % 72.6 % (38.7-73.9); Platelet Count 145 T/CUMM (130-400); Red Blood Count 3.88 MC/CUMM (3.8-5.5); Red Cell Distribution Width 15.1 % (9.3-17.3); White Blood Count 6.6 T/CUMM (4-12)
[2018-04-29] MEDS ORDERED: RIVAROXABAN 15 MG TABLET PO SCH (08:00)
[2018-04-29] MEDS: FUROSEMIDE 40 MG/4 ML VIAL IV SCH (09:49)
[2018-04-29] MEDS: ASCORBIC ACID 500 MG TABLET PO SCH (09:50)
[2018-04-29] MEDS: POTASSIUM CHLORIDE 10 MEQ TABLET PO SCH (09:50)
[2018-04-29] MEDS: SPIRONOLACTONE 25 MG TABLET PO SCH (09:50)
[2018-04-29] MEDS: ANASTROZOLE 1 MG TABLET PO SCH (09:50)
[2018-04-29] MEDS: SOTALOL 80 MG TABLET PO SCH (09:50)
[2018-04-29] MEDS: amLODIPine 5 MG TABLET PO SCH (09:50)
[2018-04-29] MEDS: ALLOPURINOL 100 MG TABLET PO SCH (09:50)
[2018-04-29] MEDS: ATORVASTATIN 20 MG TABLET PO SCH (09:50)
[2018-04-29 11:31] VITALS: BP 137/54
== END 2018-04-29 12:17 | disposition home or self-care (01) | DRG 292 ==
LOC: EDUNIT# → EDBD → N.ED 04:21 → N.EDINP 06:18 → N.TELES 07:37

== ENCOUNTER 2019-12-19 16:25 | Inpatient (IN) ==
[2019-12-19] MEDS ORDERED: FUROSEMIDE 40 MG/4 ML VIAL IV STA (17:00)
[2019-12-19 17:06] LABS: Basophils % 0.3 % (0.0-0.8); Eosinophils # 0.3 10*3/uL (0.0-0.87); Eosinophils % 2.3 % (0.00-10.9); Hematocrit 37.8 VOL% (35.7-47.0); Hemoglobin 11.9 GM/DL (12.0-16.0); Immature Granulocytes % 0.4 %; Immature Granulocytes Absolute 0.05 #; Lymphocytes # 0.8 10*3/uL (1.4-4.0); Lymphocytes % 6.3 % (21.3-54.2); Mean Corpuscular HGB Conc 31.5 GM/DL (32-36); Mean Corpuscular Volume 90.6 FL (87-102); Mean Platelet Volume 10.2 FL (9.6-12.0); Monocytes % 6.1 % (1.7-12.7); Neutrophils % 84.6 % (38.7-73.9); Platelet Count 186 T/CUMM (130-400); Red Blood Count 4.17 MC/CUMM (3.8-5.5); Red Cell Distribution Width 14.6 % (9.3-17.3); White Blood Count 12.1 T/CUMM (4-12)
[2019-12-19 17:20] LABS: Albumin 3.4 G/DL (3.4-5.0); Bilirubin,Total 0.9 MG/DL (0.2-1.0); Calcium 8.6 MG/DL (8.5-10.1)
[2019-12-19] MEDS ORDERED: POTASSIUM CHLORIDE 20 MEQ TABLET PO STA (17:46)
[2019-12-19] MEDS ORDERED: DILTIAZEM 50 MG/10 ML VIAL IV STA (17:49)
[2019-12-19] MEDS ORDERED: DILTIAZEM 25 MG/5 ML VIAL IV ONE (17:51)
[2019-12-19] MEDS ORDERED: ACETAMINOPHEN 325 MG TABLET PO PRN (18:29)
[2019-12-19] MEDS ORDERED: ONDANSETRON 4 MG/2 ML VIAL IV PRN (18:29)
[2019-12-19] MEDS ORDERED: MAGNESIUM SULF RIDER 2 GM in PREMIX 1 EACH IV PRN (18:29)
[2019-12-19] MEDS ORDERED: MAGNESIUM SULF RIDER 4 GM in PREMIX 1 EACH IV PRN (18:29)
[2019-12-19 19:08] LABS: Thyroid Stimulating Hormone 0.571 uIU/ml (0.358-3.74)
[2019-12-19 20:33] LABS: Apearance,Urine CLEAR (Clear); Bilirubin,Urine Negative (Negative); Blood, Urine Small mg/dL (Negative); Glucose,Urine (UA) Negative (Negative); Ketones,Urine Negative (Negative); Nitrite,Urine Negative (Negative); Protein,Urine Negative; RBC,Urine 1 /HPF (0-4); Squamous Epithelial Cell,Urine Occasional /HPF (0-10); Urine Color Straw (Yellow); Urine Specific Gravity 1.008 (1.001-1.035); Urine Urobilinogen < 2.0 EU/DL (0.2-1.0); WBC,Urine 1 /HPF (0-6)
[2019-12-19] MEDS ORDERED: RIVAROXABAN 15 MG TABLET PO SCH (21:00)
[2019-12-19] MEDS: cefTRIAXone 1,000 MG in SYRINGE 1 EACH IV SCH (22:12)
[2019-12-19] MEDS: SOTALOL 80 MG TABLET PO SCH (22:13)
[2019-12-19] MEDS: ATORVASTATIN 20 MG TABLET PO SCH (22:13)
[2019-12-19] MEDS: TRIAMCINOLONE 0.1% OINT 15 GM TUBE TOP SCH (22:15)
[2019-12-19] MEDS: POTASSIUM CHLORIDE 20 MEQ TABLET PO SCH ×2 (22:16)
[2019-12-20] MEDS: POTASSIUM CHLORIDE 20 MEQ TABLET PO SCH ×3 (01:13→21:02)
[2019-12-20 06:45] LABS: Basophils % 0.5 % (0.0-0.8); Eosinophils # 0.5 10*3/uL (0.0-0.87); Hematocrit 36.2 VOL% (35.7-47.0); Hemoglobin 11.3 GM/DL (12.0-16.0); Immature Granulocytes % 0.4 %; Immature Granulocytes Absolute 0.03 #; Lymphocytes # 1.2 10*3/uL (1.4-4.0); Lymphocytes % 14.3 % (21.3-54.2); Mean Corpuscular HGB Conc 31.2 GM/DL (32-36); Mean Corpuscular Volume 91.2 FL (87-102); Mean Platelet Volume 10.3 FL (9.6-12.0); Neutrophils % 70.8 % (38.7-73.9); Platelet Count 165 T/CUMM (130-400); Red Blood Count 3.97 MC/CUMM (3.8-5.5); Red Cell Distribution Width 14.7 % (9.3-17.3)
[2019-12-20 07:21] LABS: Alanine Aminotransferase < 9 U/L (13-56); Alkaline Phosphatase 62 U/L (45-117); Aspartate Amino Transferase 13 U/L (0-37); Blood Urea Nitrogen 37 MG/DL (7-18); Calcium 8.6 MG/DL (8.5-10.1); Estimated Glom Filtration Rate 30 ML/MIN; Glucose 108 MG/DL (74-106); HDL Cholesterol 56 MG/DL (40-60); Osmolality,Calculated 288.4 MOS/KG (273-304); Risk Ratio 2.48; Total Protein 6.3 G/DL (6.4-8.3); Triglycerides 126 MG/DL (2-150); VLDL CHOLESTEROL 25.2 MG/DL
[2019-12-20] MEDS: FUROSEMIDE 40 MG/4 ML VIAL IV SCH ×3 (07:38→17:43)
[2019-12-20] MEDS: SOTALOL 80 MG TABLET PO SCH ×2 (08:59→21:02)
[2019-12-20] MEDS: POTASSIUM CHLORIDE 20 MEQ TABLET PO PRN ×3 (09:00→15:30)
[2019-12-20] MEDS: SPIRONOLACTONE 25 MG TABLET PO SCH (09:00)
[2019-12-20] MEDS ORDERED: INFLUENZA VIRUS VACCINE 0.5 ML SYRINGE IM ONE (09:00)
[2019-12-20] MEDS: PANTOPRAZOLE 40 MG TABLET PO SCH (09:01)
[2019-12-20] MEDS: TRIAMCINOLONE 0.1% OINT 15 GM TUBE TOP SCH (09:01)
[2019-12-20] MEDS: allopurinoL 100 MG TABLET PO SCH (09:07)
[2019-12-20] MEDS: TRIAMCINOLONE 0.1% OINT 454 GM JAR TOP SCH ×2 (17:14→21:06)
[2019-12-20] MEDS: ATORVASTATIN 20 MG TABLET PO SCH (21:02)
[2019-12-20] MEDS: cefTRIAXone 1,000 MG in SYRINGE 1 EACH IV SCH (21:02)
[2019-12-20] MEDS: RIVAROXABAN 10 MG TABLET PO SCH (21:02)
[2019-12-21 06:37] LABS: Basophils # 0.1 10*3/uL (0.0-0.2); Basophils % 0.8 % (0.0-0.8); Eosinophils # 0.5 10*3/uL (0.0-0.87); Eosinophils % 7.6 % (0.00-10.9); Hematocrit 37.8 VOL% (35.7-47.0); Hemoglobin 11.6 GM/DL (12.0-16.0); Immature Granulocytes % 0.3 %; Immature Granulocytes Absolute 0.02 #; Lymphocytes # 1.3 10*3/uL (1.4-4.0); Lymphocytes % 20.2 % (21.3-54.2); Mean Corpuscular HGB Conc 30.7 GM/DL (32-36); Mean Corpuscular Volume 92.2 FL (87-102); Mean Platelet Volume 10.1 FL (9.6-12.0); Monocytes % 9.5 % (1.7-12.7); Neutrophils % 61.6 % (38.7-73.9); Platelet Count 182 T/CUMM (130-400); Red Cell Distribution Width 14.8 % (9.3-17.3); White Blood Count 6.2 T/CUMM (4-12)
[2019-12-21 06:59] LABS: Albumin 2.9 G/DL (3.4-5.0); Bilirubin,Total 1.2 MG/DL (0.2-1.0); Calcium 8.7 MG/DL (8.5-10.1); Osmolality,Calculated 293.4 MOS/KG (273-304); Total Protein 6.5 G/DL (6.4-8.3)
[2019-12-21] MEDS: SPIRONOLACTONE 25 MG TABLET PO SCH (08:24)
[2019-12-21] MEDS: SOTALOL 80 MG TABLET PO SCH ×2 (08:24→21:02)
[2019-12-21] MEDS: FUROSEMIDE 40 MG/4 ML VIAL IV SCH (08:24)
[2019-12-21] MEDS: allopurinoL 100 MG TABLET PO SCH (08:25)
[2019-12-21] MEDS: PANTOPRAZOLE 40 MG TABLET PO SCH (08:25)
[2019-12-21] MEDS: POTASSIUM CHLORIDE 20 MEQ TABLET PO SCH ×2 (08:25→21:03)
[2019-12-21] MEDS: TRIAMCINOLONE 0.1% OINT 454 GM JAR TOP SCH ×2 (08:27→21:04)
[2019-12-21] MEDS: FUROSEMIDE 40 MG TABLET PO SCH (17:05)
[2019-12-21] MEDS: cefTRIAXone 1,000 MG in SYRINGE 1 EACH IV SCH (21:03)
[2019-12-21] MEDS: RIVAROXABAN 10 MG TABLET PO SCH (21:03)
[2019-12-21] MEDS: ATORVASTATIN 20 MG TABLET PO SCH (21:03)
[2019-12-22 04:51] LABS: Basophils # 0.1 10*3/uL (0.0-0.2); Basophils % 0.9 % (0.0-0.8); Eosinophils # 0.4 10*3/uL (0.0-0.87); Eosinophils % 6.3 % (0.00-10.9); Hemoglobin 11.7 GM/DL (12.0-16.0); Immature Granulocytes % 1.1 %; Immature Granulocytes Absolute 0.07 #; Lymphocytes # 1.5 10*3/uL (1.4-4.0); Mean Corpuscular HGB Conc 31.6 GM/DL (32-36); Mean Corpuscular Volume 89.6 FL (87-102); Monocytes % 9.8 % (1.7-12.7); Neutrophils % 58.9 % (38.7-73.9); Platelet Count 199 T/CUMM (130-400); Red Blood Count 4.13 MC/CUMM (3.8-5.5); Red Cell Distribution Width 14.6 % (9.3-17.3); White Blood Count 6.4 T/CUMM (4-12)
[2019-12-22 05:20] LABS: Bilirubin,Total 0.6 MG/DL (0.2-1.0); Calcium 8.8 MG/DL (8.5-10.1); Osmolality,Calculated 297.4 MOS/KG (273-304); Total Protein 6.5 G/DL (6.4-8.3)
[2019-12-22 07:20] VITALS: BP 119/51
[2019-12-22] MEDS ORDERED: POTASSIUM CHLORIDE 20 MEQ TABLET PO ONE (08:00)
[2019-12-22] MEDS: PANTOPRAZOLE 40 MG TABLET PO SCH (08:27)
[2019-12-22] MEDS: SPIRONOLACTONE 25 MG TABLET PO SCH (08:27)
[2019-12-22] MEDS: allopurinoL 100 MG TABLET PO SCH (08:27)
[2019-12-22] MEDS: FUROSEMIDE 40 MG TABLET PO SCH (08:28)
[2019-12-22] MEDS: SOTALOL 80 MG TABLET PO SCH (08:28)
[2019-12-22] MEDS: TRIAMCINOLONE 0.1% OINT 454 GM JAR TOP SCH (08:34)
[2019-12-22] MEDS: POTASSIUM CHLORIDE 20 MEQ TABLET PO SCH (08:36)
== END 2019-12-22 11:18 | disposition home or self-care (01) | DRG 291 ==
LOC: EDUNIT# → N.ED 16:25 → SUATTDRO 18:28 → N.EDINP 18:28 → N.5E 20:30
PROVIDERS: ADMIT Internal Medicine; ATTEND Internal Medicine